=== PATIENT | male | born 1980 | race African-American/Black ===

== ENCOUNTER 2019-02-26 09:36 | Emergency (ER) | payer OTHER | END 2019-02-26 11:01 | disposition home or self-care (01) | LOC: ERS 09:36 | DX: M25.571 Pain in right ankle and joints of right foot (principal); E11.9 Type 2 diabetes mellitus without complications; K21.9 Gastro-esophageal reflux disease without esophagitis; J45.909 Unspecified asthma, uncomplicated; F17.210 Nicotine dependence, cigarettes, uncomplicated; Z79.84 Long term (current) use of oral hypoglycemic drugs | CPT/HCPCS: 99281 ==